=== PATIENT | female | born 1950 | race Caucasian/White ===

== ENCOUNTER → 2017-11-14 | Outpatient (CLI) | payer MEDICARE, OTHER ==
[~2017-11-14] MED LIST: LEVFLO250 PO; PHENA200 PO; RXPHEN200 PO
[2017-11-15 08:52] LABS: Candida species (DNA Probe) Negative (NEGATIVE); G. vaginalis (DNA Probe) Negative (NEGATIVE); T. vaginalis (DNA Probe) Negative (NEGATIVE)
== END ==
LOC: LAB SHORT 10:15 → LAB EV 10:15
PROVIDERS: Nurse Practitioner Family
DX: L29.3 Anogenital pruritus, unspecified (principal); N76.0 Acute vaginitis
CPT/HCPCS: 87480; 87510; 87660

== ENCOUNTER 2021-08-02 08:31 | Day surgery (SDC) | payer MEDICARE, OTHER ==
[~2021-08-02] VITALS: Ht 167.6 cm; Wt 75.0 kg
[~2021-08-02 08:31] MED LIST changes: +MOTION RELIEF25 MG PO; +Zofran Odt8 MG SL
[2021-08-02] MEDS ORDERED: FLUT.05NI (09:08)
== END 2021-08-02 11:16 | disposition home or self-care (01) ==
LOC: ORSCSDS 08:31
PROVIDERS: Surgery
PROC: 3E0H8KZ Introduction of Other Diagnostic Substance into Lower GI, Via Natural or Artificial Opening Endoscopic (ICD-10-PCS; principal; 2021-08-02 09:45)
PROC: 0DBL8ZX Excision of Transverse Colon, Via Natural or Artificial Opening Endoscopic, Diagnostic (ICD-10-PCS; principal; 2021-08-02 09:45)
PROC: 0DBH8ZX Excision of Cecum, Via Natural or Artificial Opening Endoscopic, Diagnostic (ICD-10-PCS; principal; 2021-08-02 09:45)
DX: Z12.11 Encounter for screening for malignant neoplasm of colon (principal); Z86.010 Personal history of colon polyps; Z80.0 Family history of malignant neoplasm of digestive organs; D12.0 Benign neoplasm of cecum; D12.3 Benign neoplasm of transverse colon; E03.9 Hypothyroidism, unspecified; Z79.899 Other long term (current) drug therapy
CPT/HCPCS: 88305; J2704; J7120

== ENCOUNTER 2022-03-30 13:02 | Day surgery (SDC) | payer MEDICARE, OTHER ==
[~2022-03-30] VITALS: Ht 165.1 cm; Wt 65.4 kg
[~2022-03-30 13:02] MED LIST changes: +FLUT.05NI
[2022-03-30] MEDS ORDERED: VITAMIN D310 MC4 (13:26)
[2022-03-30] MEDS ORDERED: LEVFLO500 (13:26)
[2022-03-30] MEDS ORDERED: EUTHYROX88 MCG (13:26)
== END 2022-03-30 15:06 | disposition home or self-care (01) ==
LOC: ORSCSDS 13:02
PROVIDERS: Surgery
PROC: 0DBL8ZX Excision of Transverse Colon, Via Natural or Artificial Opening Endoscopic, Diagnostic (ICD-10-PCS; principal; 2022-03-30 14:15)
PROC: 0DBK8ZX Excision of Ascending Colon, Via Natural or Artificial Opening Endoscopic, Diagnostic (ICD-10-PCS; principal; 2022-03-30 14:15)
DX: Z12.11 Encounter for screening for malignant neoplasm of colon (principal); Z86.010 Personal history of colon polyps; Z80.0 Family history of malignant neoplasm of digestive organs; D12.3 Benign neoplasm of transverse colon; D12.2 Benign neoplasm of ascending colon; E03.9 Hypothyroidism, unspecified; Z87.891 Personal history of nicotine dependence
CPT/HCPCS: 88305; J2704; J7120

== ENCOUNTER 2024-06-10 07:04 | Day surgery (SDC) | payer MEDICARE, OTHER ==
[~2024-06-10] VITALS: Ht 165.1 cm; Wt 61.3 kg
[~2024-06-10 07:04] MED LIST changes: +Alendronate Sodi5 MG PO; +EUTHYROX88 MCG; +FLONASE ALLERG9.9 M2; +LEVFLO500; +LEVSOD75 PO; +SYNTHROID50 MC1 PO; +VITAMIN D310 MC4; +Vitamin D1000 UNI1 PO
[2024-06-10] MEDS ORDERED: Lactated Ringer's 1,000 ML IV ONE ×2 (07:33→08:33)
[2024-06-10] MEDS ORDERED: propofoL 20 ML IV ONE ×2 (07:34→07:37)
[2024-06-10 09:54] VITALS: BP 106/65
== END 2024-06-10 09:48 | disposition home or self-care (01) ==
LOC: ORSCSDS 07:04
PROVIDERS: Surgery
PROC: 0DBL8ZX Excision of Transverse Colon, Via Natural or Artificial Opening Endoscopic, Diagnostic (ICD-10-PCS; principal; 2024-06-10 08:30)
DX: Z12.11 Encounter for screening for malignant neoplasm of colon (principal); Z09 Encounter for follow-up examination after completed treatment for conditions other than malignant neoplasm; Z86.0101 Personal history of adenomatous and serrated colon polyps; Z80.0 Family history of malignant neoplasm of digestive organs; D12.3 Benign neoplasm of transverse colon; E03.9 Hypothyroidism, unspecified; Z79.899 Other long term (current) drug therapy
CPT/HCPCS: 88305; J2704; J7120